=== PATIENT | male | born 1995 | race Two or more races ===

== ENCOUNTER 2019-06-06 16:36 | Emergency (ER) | payer OTHER ==
[~2019-06-06] VITALS: Ht 175.3 cm; Wt 67.1 kg
[2019-06-06 16:40] VITALS: BP 130/76
--- NOTE | 2019-06-06 16:40 | NUR ---
ED Nurse Note: Patient walked in to ER c/o flu like symptoms. Patient stated was in close contact with person who was diagnosed with calvillo virus. Patient presented calm, AAO x4, VSS at this time, skin is warm to touch.
--- NOTE | 2019-06-06 16:55 | Emergency Room Report ---
History of Present Illness General Chief Complaint: Flu Like Symptoms Source: Patient Present Illness HPI 24-year-old male with no symptom past medical history, no chronic condition, no smoking history here complaining of sore throat, generalized body ache, congestion and subjective fever x2 weeks. Reports that 2 weeks ago he shared a drink with a friend who is now positive for Covid 19. Reports that he has been quarantining himself at home since then. Denies any chest pain, shortness of breath, palpitation, headache and dizziness at this time. Denies any recent travel. Patient appears to be afebrile and vital signs are otherwise within normal limits. Patient was placed in isolation intent outside. Proper gear was worn to examine the patient. COVID-19 risk:Travel to affect: Yes Has patient experienced calvillo: Yes Coronavirus symptoms experienc: Cough, Runny Nose, Flu-Like Symptoms Allergies: Coded Allergies: No Known Allergies (Unverified , 06/06/19) Patient History Past Medical History: see triage record Past Surgical History: none Pertinent Family History: none Immunizations: UTD Reviewed Nursing Documentation: PMH: Agreed; PSxH: Agreed Review of Systems All Other Systems: negative except mentioned in HPI Physical Exam Vital Signs Date Time Temp Pulse Resp B/P (MAP) Pulse Ox O2 Delivery O2 Flow Rate FiO2 06/06/19 16:28 98.4 75 20 130/76 (94) 98 Room Air Sp02 EP Interpretation: reviewed, normal General Appearance: no apparent distress, alert, GCS 15, non-toxic Head: normocephalic, atraumatic Eyes: bilateral eye normal inspection, bilateral eye PERRL ENT: hearing grossly normal, normal pharynx, no angioedema, normal voice Neck: full range of motion, supple, supple/symm/no masses Respiratory: chest non-tender, lungs clear, normal breath sounds, no rhonchi, no retraction, no wheezing, speaking full sentences Cardiovascular #1: regular rate, rhythm, no edema Gastrointestinal: normal bowel sounds, non tender, soft, non-distended, no guarding, no rebound Genitourinary: no CVA tenderness Musculoskeletal: back normal, normal range of motion, gait/station normal, non- tender Neurologic: alert, motor strength/tone normal, oriented x3, sensory intact, responsive, speech normal Psychiatric: normal inspection, judgement/insight normal Skin: no rash Lymphatic: no adenopathy Medical Decision Making PA Attestation All my diagnosis and treatment plans were reviewed ad discussed with my supervising physician Dr. Gibson Diagnostic Impression: Primary Impression: Exposure to SARS-associated coronavirus ER Course 24-year-old male with no symptom past medical history, no chronic condition, no smoking history here complaining of sore throat, generalized body ache, congestion and subjective fever x2 weeks. Reports that 2 weeks ago he shared a drink with a friend who is now positive for Covid 19. Reports that he has been quarantining himself at home since then. Denies any chest pain, shortness of breath, palpitation, headache and dizziness at this time. Denies any recent travel. Patient appears to be afebrile and vital signs are otherwise within normal limits. Patient was placed in isolation intent outside. Proper gear was worn to examine the patient. Ddx considered but are not limited to: Calvillo virus strep pharyngitis, URI, tonsillitis, peritonsillar abscess, influneza Vital signs: are WNL, pt. is afebrile H&PE are most consistent with: Exposure to coronavirus ORDERS: Covid 19 testing,, rapid influenza test ED INTERVENTIONS: None required at this time. DISCHARGE: At this time pt. is stable for d/c to home. Will provide printed patient care instructions, and any necessary prescriptions. Care plan and follow up instructions have been discussed with the patient prior to discharge. Patient to go home and so for continued for 14 days take medication as directed, follow-up with your primary doctor, you need to stay home for self quarantine due to Covid 19 precautions for 14 days Last Vital Signs Date Time Temp Pulse Resp B/P (MAP) Pulse Ox O2 Delivery O2 Flow Rate FiO2 06/06/19 16:28 98.4 75 20 130/76 (94) 98 Room Air Disposition: HOME, SELF-CARE Condition: Stable Patient Instructions: Droplet Precautions, [id number] Additional Instructions: Stay home for the next 14 days, do not come in contact with other people, try to avoid contact with your roommates. Increase oral hydration, alternate between Motrin or Tylenol for body aches. If worsening symptoms return to the emergency room Thony Mckeon Jun 06, 2019 16:54
--- NOTE | 2019-06-06 17:32 | NUR ---
ED Nurse Note: Pt cleared by health care Provider for discharge. DC instructions/prescription was given and explained to pt and verbalized understanding of teachings. All medical deviecs such as ID band removed. Pt is AAO x4, ambulatory and left with all personal belongings.
== END 2019-06-06 17:32 | disposition home or self-care (01) ==
LOC: EMR 17:10
DX: R07.0 Pain in throat (principal); R50.9 Fever, unspecified; Z20.828 Contact with and (suspected) exposure to other viral communicable diseases
CPT/HCPCS: 86710; Z7502; 99282